=== PATIENT | male | born 1950 | race American Indian/Alaskan Native ===

== ENCOUNTER 2017-12-16 03:01 | Inpatient (IN) | payer MEDICARE ==
[2017-12-16 04:05] LABS: BUN/Creatinine Ratio 13; Blood Urea Nitrogen 13 mg/dL (9-20); Calcium 8.6 mg/dL (8.4-10.2); Hemolysis Index 70
[2017-12-16 04:06] LABS: Basophils # (Auto) 0.1 K/mm3 (0.0-0.1); Basophils % (Auto) 0.9 % (0.0-1.8); Eosinophils # (Auto) 0.2 K/mm3 (0.0-0.4); Eosinophils % (Auto) 1.8 % (0.0-4.3); Hematocrit 40.6 % (35.5-45.6); Hemoglobin 13.4 gm/dl (11.8-15.2); Lymphocytes # (Auto) 1.7 K/mm3 (1.2-5.4); Lymphocytes % (Auto) 20.7 % (13.4-35.0); Mean Corpuscular HGB Conc 33 % (32-34); Mean Corpuscular Hemoglobin 31 pg (28-32); Mean Corpuscular Volume 95 fl (84-94); Monocytes # (Auto) 0.6 K/mm3 (0.0-0.8); Monocytes % (Auto) 7.1 % (0.0-7.3); Red Blood Count 4.27 M/mm3 (3.65-5.03); Red Cell Distribution Width 16.5 % (13.2-15.2)
[2017-12-16 04:09] LABS: Platelet Count 137 K/mm3 (140-440)
--- NOTE | 2017-12-16 04:14 | XRay Report ---
FINAL REPORT EXAM: XR CHEST 1V AP HISTORY: BRAULIO TECHNIQUE: A portable view of the chest was submitted. FINDINGS: The heart is [id number] enlarged. The lungs are diffusely congested. There is airspace disease in both lung bases. Underlying effusions cannot be excluded. There are EKG leads overlying the chest wall. The bones and soft tissues reveal surgical clips in the left side of the neck. IMPRESSION: Cardiomegaly with pulmonary vascular congestion as described. There is airspace disease in both lung bases. Whether this is on the basis of pulmonary edema versus pneumonia is uncertain.
[2017-12-16] MEDS ORDERED: BABY ASPIRIN PO ONE (08:09)
[2017-12-16] MEDS ORDERED: LOPRESSOR PO ONE (08:10)
[2017-12-16] MEDS ORDERED: PLAVIX PO ONE (08:10)
[2017-12-16 08:14] LABS: Chol/HDL Ratio 2.83 %
--- NOTE | 2017-12-16 08:28 | Emergency Department Report ---
ED Shortness of Breath HPI - General Chief Complaint: Dyspnea/Respdistress Stated Complaint: BRAULIO Time Seen by Provider: 12/16/17 06:17 Source: patient, EMS Mode of arrival: Stretcher Limitations: No Limitations - History of Present Illness Initial Comments: pt. says that he was also wheezing .Just before i got to the room he said he started having chest pain,substernal mild to moderate intensity non radiating with aggrav. with movement and no relieving factor Complaint: shortness of breath Onset/Timin (day) -: Gradual Radiation: other (none) Severity: moderate Quality: aching Consistency: intermittent Improves With: nothing Worsens With: movement Known History Of: COPD Associated Symptoms: chest pain - Related Data Home Medications Medication Instructions Recorded Confirmed Last Taken Budesonide/Formoterol Fumarate 1 puff IH BID 12/16/17 12/16/17 Unknown [Symbicort 160-4.5 Mcg Inhaler] Cholecalciferol Vit D3 [Vitamin D3] 400 unit PO QDAY 12/16/17 12/16/17 Unknown Digoxin [Lanoxin] 0.125 mg PO DAILY 12/16/17 12/16/17 Unknown Furosemide [Lasix] 20 mg PO DAILY 12/16/17 12/16/17 Unknown Lisinopril [Zestril TAB] 2.5 mg PO QDAY 12/16/17 12/16/17 Unknown Pentoxifylline 400 mg PO QDAY 12/16/17 12/16/17 Unknown Previous Rx's Medication Instructions Recorded Last Taken Type Carvedilol [Coreg] 3.125 mg PO BID #60 tablet 10/05/14 Unknown Rx Folic Acid [Folvite] 1 mg PO QDAY #30 tablet 10/05/14 Unknown Rx Potassium Chloride 10 meq PO QDAY #30 capsule.er 10/05/14 Unknown Rx Simvastatin 20 mg PO QHS #30 tablet 10/05/14 Unknown Rx amLODIPine [Norvasc] 5 mg PO DAILY #30 tablet 10/05/14 Unknown Rx Metformin HCl [Glucophage] 500 mg PO BID #60 tablet 08/03/16 Unknown Rx Allergies Allergy/AdvReac Type Severity Reaction Status Date / Time No Known Allergies Allergy Unverified 12/04/13 14:21 ED Review of Systems ROS: Stated complaint: BRAULIO Other details as noted in HPI Comment: All other systems reviewed and negative ED Past Medical Hx - Past Medical History Previous Medical History?: Yes Hx Hypertension: Yes Hx CVA: Yes (x 2) Hx Congestive Heart Failure: Yes (EF 30-35% on echo 08/14, 20% on Heart Cath ) Hx COPD: Yes (no home O2) Additional medical history: high cholesterol. gout - Surgical History Past Surgical History?: Yes Additional Surgical History: left ankle surgery - Social History Smoking Status: Never Smoker Substance Use Type: Prescribed - Medications Home Medications: Home Medications Medication Instructions Recorded Confirmed Last Taken Type Carvedilol [Coreg] 3.125 mg PO BID #60 tablet 10/05/14 12/16/17 Unknown Rx Folic Acid [Folvite] 1 mg PO QDAY #30 tablet 10/05/14 12/16/17 Unknown Rx Potassium Chloride 10 meq PO QDAY #30 capsule.er 10/05/14 12/16/17 Unknown Rx Simvastatin 20 mg PO QHS #30 tablet 10/05/14 12/16/17 Unknown Rx amLODIPine [Norvasc] 5 mg PO DAILY #30 tablet 10/05/14 12/16/17 Unknown Rx Metformin HCl [Glucophage] 500 mg PO BID #60 tablet 08/03/16 12/16/17 Unknown Rx Budesonide/Formoterol Fumarate 1 puff IH BID 12/16/17 12/16/17 Unknown History [Symbicort 160-4.5 Mcg Inhaler] Cholecalciferol Vit D3 [Vitamin D3] 400 unit PO QDAY 12/16/17 12/16/17 Unknown History Digoxin [Lanoxin] 0.125 mg PO DAILY 12/16/17 12/16/17 Unknown History Furosemide [Lasix] 20 mg PO DAILY 12/16/17 12/16/17 Unknown History Lisinopril [Zestril TAB] 2.5 mg PO QDAY 12/16/17 12/16/17 Unknown History Pentoxifylline 400 mg PO QDAY 12/16/17 12/16/17 Unknown History ED Physical Exam - General Limitations: No Limitations General appearance: alert, in no apparent distress - Head Head exam: Present: atraumatic, normocephalic - Eye Eye exam: Present: normal appearance, PERRL - ENT ENT exam: Present: mucous membranes moist - Neck Neck exam: Present: normal inspection. Absent: tenderness - Respiratory Respiratory exam: Present: rales (bibasilar), other (on 3 litres nasal cannula) . Absent: respiratory distress - Cardiovascular Cardiovascular Exam: Present: regular rate, normal rhythm. Absent: systolic murmur, diastolic murmur, rubs, gallop - GI/Abdominal GI/Abdominal exam: Present: soft, normal bowel sounds. Absent: tenderness - Rectal Rectal exam: Present: deferred - Extremities Exam Extremities exam: Present: normal inspection, pedal edema (1+ edema) - Back Exam Back exam: Present: normal inspection - Neurological Exam Neurological exam: Present: alert, oriented X3 - Skin Skin exam: Present: warm, dry, intact, normal color. Absent: rash ED Course Vital Signs 12/16/17 12/16/17 12/16/17 03:00 03:02 03:15 Temperature 99.1 F Pulse Rate 106 H 107 H 103 H Respiratory 26 H 25 H 31 H Rate Blood Pressure 156/92 151/92 151/92 Blood Pressure [Right] O2 Sat by Pulse 97 99 95 Oximetry 12/16/17 12/16/17 12/16/17 03:31 04:00 04:15 Temperature Pulse Rate 97 H 85 79 Respiratory 27 H 26 H 22 Rate Blood Pressure 153/133 127/81 127/81 Blood Pressure [Right] O2 Sat by Pulse 96 99 95 Oximetry 12/16/17 12/16/17 12/16/17 04:30 04:45 05:00 Temperature Pulse Rate 100 H 96 H 87 Respiratory 25 H 25 H 19 Rate Blood Pressure 129/89 129/89 141/84 Blood Pressure [Right] O2 Sat by Pulse 96 98 97 Oximetry 12/16/17 12/16/17 12/16/17 05:30 06:00 07:59 Temperature 98.1 F Pulse Rate 97 H 97 H 102 H Respiratory 26 H 25 H 18 Rate Blood Pressure 145/96 147/96 Blood Pressure 139/95 [Right] O2 Sat by Pulse 96 98 95 Oximetry ED Medical Decision Making - Lab Data Result diagrams: 12/16/17 03:40 12/16/17 03:40 - EKG Data -: EKG Interpreted by Me EKG shows normal: sinus rhythm (sinus tachycardia rate of 104), axis (normal), intervals (normal), QRS complexes (normal), ST-T waves (normal) Rate: tachycardia - Radiology Data Radiology results: report reviewed - Medical Decision Making i spoke to Dr Walker and she said to admit patient to Dr Reeves Critical care attestation.: If time is entered above; I have spent that time in minutes in the direct care of this critically ill patient, excluding procedure time. ED Disposition Clinical Impression: NSTEMI (non-ST elevated myocardial infarction), Pulmonary edema Disposition: OP ADMIT IP TO THIS HOSP Is pt being admited?: Yes Does the pt Need Aspirin: Yes Condition: Stable Instructions: Pulmonary Edema (ED) Referrals: SUNDAR KRAMER MD [Primary Care Provider] - 3-5 Days Time of Disposition: 08:34 Print Language: SAUDI ARABIAN
[2017-12-16] MEDS ORDERED: D5W IV SCH (09:00)
[2017-12-16] MEDS ORDERED: HEPARIN/ 0.45% NACL-25,000 UNIT/500 ML 25,000 UNIT/500 ML BAG IV SCH (09:00)
[2017-12-16] MEDS ORDERED: HEPARIN IV SCH (09:00)
[2017-12-16] MEDS ORDERED: HEPARIN 10,000 UNITS/10 ML IV NR (10:00)
--- NOTE | 2017-12-16 10:02 | History and Physical Report ---
History of Present Illness Date of examination: 12/16/17 Date of admission: 12/16/17 08:21 Chief complaint: Shortness of breath History of present illness: 67-year-old -[place] male with past medical history significant for CHF , hypertension, COPD, hyperlipidemia presented to the emergency department complaining of shortness of breath that started early this morning. Shortness of breath started when he was watching TV. Patient admitted that he forget to take his pills yesterday. Patient has history of COPD and is on Symbicort. Patient had midsternal chest pain is morning after he come to the hospital, pain was dull, 3 out of 10 in intensity, with no radiation. He goes away by itself. Patient has on and off cough. REVIEW OF SYSTEMS: GENERAL: no weight change, no fatigue, no fever HEAD: no head ache EYES: no blurry vision, no acute visual loss EARS: no hearing loss, no discharge, no earache NOSE: no stuffiness, no sneezing, no discharge MOUTH, THROAT AND NECK: no bleeding gums, no sore throat, no swollen neck CARDIAC: As stated in the HPI. RESPIRATORY: As stated in HPI. GI: no decreased appetite, no nausea, no vomiting, no dysphagia, no diarrhea, no constipation, no abdominal pain URINARY: no change in frequency, no urgency, no polyuria, no hematuria, no incontinence MUSCULOSKELETAL: no muscle weakness, no pain, no joint stiffness NEUROLOGIC: no loss of sensation/numbness, no tingling, no tremors, no weakness/ paralysis HEMATOLOGIC: no anemia, no easy bruising SKIN: no rashes ENDOCRINE: no heat/cold intolerance, no polyuria, no polydipsia, no thyroid problems. PSYCHIATRIC: no anxiety, no depression, no suicidal ideations Past History Past Medical History: COPD, diabetes, hypertension, hyperlipidemia Past Surgical History: No surgical history Social history: smoking (1 pack per day), alcohol abuse (occasionally 2 shots), full code. denies: prescription drug abuse, IV drug use Family history: cancer Medications and Allergies Allergies Allergy/AdvReac Type Severity Reaction Status Date / Time No Known Allergies Allergy Unverified 12/04/13 14:21 Home Medications Medication Instructions Recorded Confirmed Last Taken Type Carvedilol [Coreg] 3.125 mg PO BID #60 tablet 10/05/14 12/16/17 Unknown Rx Folic Acid [Folvite] 1 mg PO QDAY #30 tablet 10/05/14 12/16/17 Unknown Rx Potassium Chloride 10 meq PO QDAY #30 capsule.er 10/05/14 12/16/17 Unknown Rx Simvastatin 20 mg PO QHS #30 tablet 10/05/14 12/16/17 Unknown Rx amLODIPine [Norvasc] 5 mg PO DAILY #30 tablet 10/05/14 12/16/17 Unknown Rx Metformin HCl [Glucophage] 500 mg PO BID #60 tablet 08/03/16 12/16/17 Unknown Rx Budesonide/Formoterol Fumarate 1 puff IH BID 12/16/17 12/16/17 Unknown History [Symbicort 160-4.5 Mcg Inhaler] Cholecalciferol Vit D3 [Vitamin D3] 400 unit PO QDAY 12/16/17 12/16/17 Unknown History Digoxin [Lanoxin] 0.125 mg PO DAILY 12/16/17 12/16/17 Unknown History Furosemide [Lasix] 20 mg PO DAILY 12/16/17 12/16/17 Unknown History Lisinopril [Zestril TAB] 2.5 mg PO QDAY 12/16/17 12/16/17 Unknown History Pentoxifylline 400 mg PO QDAY 12/16/17 12/16/17 Unknown History Active Meds: Active Medications Heparin Sodium (Porcine) (Heparin 10,000 Units/10 Ml) 4,000 unit IV ONCE NR Stop: 12/16/17 12:00 Heparin Sodium/Sodium Chloride (Heparin/ 0.45% Nacl-25,000 Unit/500 Ml) 25,000 unit in 500 mls @ 20 mls/hr IV TITRATE HAM; Protocol Exam - Physical Exam Narrative exam: Not in cardiopulmonary distress. The patient appeared well nourished and normally developed. Vital signs as documented. Head exam is unremarkable. No scleral icterus . Neck is without jugular venous distension, thyromegaly, or carotid bruits. Lungs bibasilar rales. Cardiac exam reveals regular rate and Rhythm. First and second heart sounds normal. No murmurs, rubs or gallops. Abdominal exam reveals normal bowel sounds, no masses, no organomegaly and no aortic enlargement. Extremities are nonedematous and both femoral and pedal pulses are normal. [employer]: Alert and oriented 3. No focal weakness. - Constitutional Vitals: Temp Pulse Resp BP Pulse Ox 98.1 F 108 H 18 149/99 95 12/16/17 07:59 12/16/17 08:48 12/16/17 07:59 12/16/17 08:48 12/16/17 07:59 Results - Labs CBC & Chem 7: 12/16/17 03:40 12/16/17 03:40 Labs: Laboratory Last Values WBC 8.4 K/mm3 (4.5-11.0) 12/16/17 03:40 RBC 4.27 M/mm3 (3.65-5.03) 12/16/17 03:40 Hgb 13.4 gm/dl (11.8-15.2) 12/16/17 03:40 Hct 40.6 % (35.5-45.6) 12/16/17 03:40 MCV 95 fl (84-94) H 12/16/17 03:40 MCH 31 pg (28-32) 12/16/17 03:40 MCHC 33 % (32-34) 12/16/17 03:40 RDW 16.5 % (13.2-15.2) H 12/16/17 03:40 Plt Count 137 K/mm3 (140-440) L 12/16/17 03:40 Lymph % (Auto) 20.7 % (13.4-35.0) 12/16/17 03:40 [place] % (Auto) 7.1 % (0.0-7.3) 12/16/17 03:40 Eos % (Auto) 1.8 % (0.0-4.3) 12/16/17 03:40 Baso % (Auto) 0.9 % (0.0-1.8) 12/16/17 03:40 Lymph # 1.7 K/mm3 (1.2-5.4) 12/16/17 03:40 [place] # 0.6 K/mm3 (0.0-0.8) 12/16/17 03:40 Eos # 0.2 K/mm3 (0.0-0.4) 12/16/17 03:40 Baso # 0.1 K/mm3 (0.0-0.1) 12/16/17 03:40 Seg Neutrophils % 69.5 % (40.0-70.0) 12/16/17 03:40 Seg Neutrophils # 5.8 K/mm3 (1.8-7.7) 12/16/17 03:40 Sodium 141 mmol/L (137-145) 12/16/17 03:40 Potassium 3.9 mmol/L (3.6-5.0) 12/16/17 03:40 Chloride 104.4 mmol/L (98-107) 12/16/17 03:40 Carbon Dioxide 21 mmol/L (22-30) L 12/16/17 03:40 Anion Gap 20 mmol/L 12/16/17 03:40 BUN 13 mg/dL (9-20) 12/16/17 03:40 Creatinine 1.0 mg/dL (0.8-1.5) 12/16/17 03:40 Estimated GFR > 60 ml/min 12/16/17 03:40 BUN/Creatinine Ratio 13 % 12/16/17 03:40 Glucose 137 mg/dL (75-100) H 12/16/17 03:40 Calcium 8.6 mg/dL (8.4-10.2) 12/16/17 03:40 Troponin T 0.064 ng/mL (0.00-0.029) H 12/16/17 07:08 NT-Pro-B Natriuret Pep 1121 pg/mL (0-900) H 12/16/17 07:08 Triglycerides 88 mg/dL (2-149) 12/16/17 07:08 Cholesterol 170 mg/dL (50-199) 12/16/17 07:08 LDL Cholesterol Direct 100 mg/dL (50-130) 12/16/17 07:08 HDL Cholesterol 60 mg/dL (40-59) H 12/16/17 07:08 Cholesterol/HDL Ratio 2.83 % 12/16/17 07:08 - Imaging and Cardiology Chest x-ray: report reviewed (cardiomegaly and pulmonary venous congestion) Assessment and Plan Assessment and plan: Acute on chronic combined CHF exacerbation Elevated troponin likely due to CHF exacerbation, he has previous elevation of troponin COPD Hypertension Hyperlipidemia Medication noncompliance Active tobacco abuse - Start him on IV Lasix, continue appropriate home safety of medications, consult cardiology - Duonebs, Symbicort, support - Patient was counseled about cessation tobacco abuse, and medication non compliance DVT prophylaxis - heparin Disposition - admitted telemetry floor. Advance Directives: Yes VTE prophylaxis?: Chemical Plan of care discussed with patient/family: Yes
[2017-12-16] MEDS ORDERED: NON-FORMULARY (Budesonide/Formoterol Fumarate [Symbicort 160-4.5 Mcg Inhaler] 1 PUFF) IH SCH (10:15)
[2017-12-16] MEDS ORDERED: D50W (25GM) Syringe IV PRN (10:19)
[2017-12-16] MEDS: LASIX IV SCH ×2 (10:23→17:37)
[2017-12-16] MEDS: NORVASC PO SCH (12:39)
[2017-12-16] MEDS: HumaLOG SUB-Q SCH ×3 (12:40→23:34)
[2017-12-16] MEDS: ZESTRIL PO SCH (12:40)
[2017-12-16] MEDS: LANOXIN PO SCH (13:19)
[2017-12-16] MEDS ORDERED: BROVANA NEBU IH ONE (13:24)
[2017-12-16] MEDS ORDERED: PULMICORT IH ONE (13:24)
[2017-12-16] MEDS: DUONEB *Not for PRN Use IH SCH ×4 (13:31→23:30)
[2017-12-16] MEDS: PULMICORT IH SCH ×2 (13:35→20:39)
[2017-12-16] MEDS: BROVANA NEBU IH SCH ×2 (13:35→20:39)
--- NOTE | 2017-12-16 15:50 | Consultation ---
History of Present Illness Consult date: 12/16/17 Consult reason: shortness of breath History of present illness: 67 year old male presenting with acute onset shortness of breath that started at 2 am this morning. Patient presented to the ER and was treated with Nebs along with IV diuretics and had relief. Patient is a chronic smoker, known history of non-ischemic cardiomyopathy with LVEF 20% back in 2013 that appears to have recovered to 55% by echo 03/2017. A cath done in 2013 showed small vessel disease involving OM1 otherwise non-obstructive anatomy. Patient reports compliance but admits occasionally forgetting to take his medications Past History Past Medical History: COPD, diabetes, hypertension, hyperlipidemia Past Surgical History: No surgical history Social history: smoking (1 pack per day), alcohol abuse (occasionally 2 shots), full code. denies: prescription drug abuse, IV drug use Family history: cancer Medications and Allergies Allergies Allergy/AdvReac Type Severity Reaction Status Date / Time No Known Allergies Allergy Unverified 12/04/13 14:21 Home Medications Medication Instructions Recorded Confirmed Last Taken Type Carvedilol [Coreg] 3.125 mg PO BID #60 tablet 10/05/14 12/16/17 Unknown Rx Folic Acid [Folvite] 1 mg PO QDAY #30 tablet 10/05/14 12/16/17 Unknown Rx Potassium Chloride 10 meq PO QDAY #30 capsule.er 10/05/14 12/16/17 Unknown Rx Simvastatin 20 mg PO QHS #30 tablet 10/05/14 12/16/17 Unknown Rx amLODIPine [Norvasc] 5 mg PO DAILY #30 tablet 10/05/14 12/16/17 Unknown Rx Metformin HCl [Glucophage] 500 mg PO BID #60 tablet 08/03/16 12/16/17 Unknown Rx Budesonide/Formoterol Fumarate 1 puff IH BID 12/16/17 12/16/17 Unknown History [Symbicort 160-4.5 Mcg Inhaler] Cholecalciferol Vit D3 [Vitamin D3] 400 unit PO QDAY 12/16/17 12/16/17 Unknown History Digoxin [Lanoxin] 0.125 mg PO DAILY 12/16/17 12/16/17 Unknown History Furosemide [Lasix] 20 mg PO DAILY 12/16/17 12/16/17 Unknown History Lisinopril [Zestril TAB] 2.5 mg PO QDAY 12/16/17 12/16/17 Unknown History Pentoxifylline 400 mg PO QDAY 12/16/17 12/16/17 Unknown History Active Meds: Active Medications Albuterol/Ipratropium (Duoneb *Not For Prn Use*) 1 ampul IH Q4HRT [facility] Last Admin: 12/16/17 13:31 Dose: 1 ampul Amlodipine Besylate (Norvasc) 5 mg PO DAILY [facility] Last Admin: 12/16/17 12:39 Dose: 5 mg Arformoterol Tartrate (Brovana Nebu) 15 mcg IH Q12HRT [facility] Last Admin: 12/16/17 13:35 Dose: 15 mcg Budesonide (Pulmicort) 0.5 mg IH Q12HRT [facility] Last Admin: 12/16/17 13:35 Dose: 0.5 mg Carvedilol (Coreg) 3.125 mg PO BID [facility] Cholecalciferol (Vitamin D3) 400 unit PO QDAY [facility] Dextrose (D50w (25gm) Syringe) 50 ml IV PRN PRN PRN Reason: Hypoglycemia Digoxin (Lanoxin) 0.125 mg PO DAILY [facility] Last Admin: 12/16/17 13:19 Dose: 0.125 mg Folic Acid (Folvite) 1 mg PO QDAY [facility] Furosemide (Lasix) 40 mg IV 0600,1800 [facility] Last Admin: 12/16/17 10:23 Dose: 40 mg Heparin Sodium (Porcine) (Heparin) 5,000 unit SUB-Q Q12HR [facility] Insulin Human Lispro (Humalog) 0 unit SUB-Q [facility]; Protocol Last Admin: 12/16/17 12:40 Dose: 3 unit Lisinopril (Zestril) 2.5 mg PO QDAY [facility] Last Admin: 12/16/17 12:40 Dose: 2.5 mg Nicotine (Habitrol) 21 mg TD QDAY [facility] Pravastatin Sodium (Pravachol) 40 mg PO QHS [facility] Review of Systems All systems: negative Physical Examination Vital Signs Pulse Resp BP Pulse Ox 106 H 26 H 156/92 97 12/16/17 03:00 12/16/17 03:00 12/16/17 03:00 12/16/17 03:00 General appearance: no acute distress HEENT: Positive: PERRL Neck: Positive: neck supple Cardiac: Positive: Reg Rate and Rhythm Lungs: Positive: Decreased Breath Sounds Neuro: Positive: Grossly Intact Abdomen: Positive: Soft Extremities: Absent: edema Results 12/16/17 03:40 12/16/17 03:40 Lipids 12/16/17 Range/Units 07:08 Triglycerides 88 (2-149) mg/dL Cholesterol 170 (50-199) mg/dL HDL Cholesterol 60 H (40-59) mg/dL Cholesterol/HDL Ratio 2.83 % CBC 12/16/17 Range/Units 03:40 WBC 8.4 (4.5-11.0) K/mm3 RBC 4.27 (3.65-5.03) M/mm3 Hgb 13.4 (11.8-15.2) gm/dl Hct 40.6 (35.5-45.6) % Plt Count 137 L (140-440) K/mm3 Lymph # 1.7 (1.2-5.4) K/mm3 [place] # 0.6 (0.0-0.8) K/mm3 Eos # 0.2 (0.0-0.4) K/mm3 Baso # 0.1 (0.0-0.1) K/mm3 Comprehensive Metabolic Panel 12/16/17 Range/Units 03:40 Sodium 141 (137-145) mmol/L Potassium 3.9 (3.6-5.0) mmol/L Chloride 104.4 (98-107) mmol/L Carbon Dioxide 21 L (22-30) mmol/L BUN 13 (9-20) mg/dL Creatinine 1.0 (0.8-1.5) mg/dL Glucose 137 H (75-100) mg/dL Calcium 8.6 (8.4-10.2) mg/dL Assessment and Plan Shortness of breath - multifactorial Congestive heart failure CXR showing cardiomegaly with pulmonary venous congestion LVEF 50-55% 03/2017 COPD exacerbation CAD Small OM1 disease in 2013 Non-specific troponin Non-specific ST-T waves abnormalities on ECG Recommendations: Agree with management Echocardiogram Continue to trend troponin
[2017-12-16] MEDS: HABITROL TD SCH (17:41)
[2017-12-16] MEDS: HEPARIN SUB-Q SCH (22:41)
[2017-12-16] MEDS: PRAVACHOL PO SCH (22:41)
[2017-12-16] MEDS: COREG PO SCH (22:41)
[2017-12-17] MEDS: DUONEB *Not for PRN Use IH SCH ×5 (03:59→20:20)
[2017-12-17 06:01] LABS: BUN/Creatinine Ratio 21; Blood Urea Nitrogen 19 mg/dL (9-20); Calcium 8.6 mg/dL (8.4-10.2); Hemolysis Index 6
[2017-12-17] MEDS: LASIX IV SCH ×2 (06:03→17:28)
[2017-12-17] MEDS: BROVANA NEBU IH SCH ×2 (08:11→20:20)
[2017-12-17] MEDS: PULMICORT IH SCH ×2 (08:11→20:19)
[2017-12-17] MEDS: LANOXIN PO SCH (10:06)
[2017-12-17] MEDS: NORVASC PO SCH (10:06)
[2017-12-17] MEDS: ZESTRIL PO SCH (10:07)
[2017-12-17] MEDS: COREG PO SCH ×2 (10:07→23:11)
[2017-12-17] MEDS: HEPARIN SUB-Q SCH ×2 (10:07→23:12)
[2017-12-17] MEDS: FOLVITE PO SCH (10:07)
[2017-12-17] MEDS: HABITROL TD SCH (10:07)
[2017-12-17] MEDS: HumaLOG SUB-Q SCH ×4 (10:08→23:14)
--- NOTE | 2017-12-17 10:46 | Progress Note ---
Assessment and Plan Shortness of breath - multifactorial Congestive heart failure -diastolic CXR showing cardiomegaly with pulmonary venous congestion LVEF 50-55% 03/2017 COPD exacerbation Hx of CAD Small OM1 disease, otherwise non obstructive diffuse CAD on [facility] 08/2014 Non-specific troponin Non-specific ST-T waves abnormalities on ECG Echocardiogram done today, results are pending. Subjective Date of service: 12/17/17 Interval history: Patient reports his breathing has improved. He denies chest pain. Objective Vital Signs Temp Pulse Pulse Resp Resp BP BP 12/17/17 10:07 135/88 12/17/17 10:06 135/88 12/17/17 08:25 69 135/88 12/17/17 05:43 97.6 F 71 22 123/78 12/17/17 04:00 83 12/17/17 01:53 98.2 F 76 22 130/68 12/16/17 23:37 90 20 12/16/17 23:30 88 20 12/16/17 22:41 97 H 127/71 12/16/17 20:50 93 H 20 12/16/17 20:41 91 H 20 12/16/17 20:17 91 H 12/16/17 20:09 98.3 F 80 22 127/71 18 16:56 97.8 F 82 20 153/95 18 16:52 87 20 18 16:42 88 20 18 15:44 97.8 F 81 20 153/95 18 14:40 165/99 12/16/17 14:30 165/99 12/16/17 14:01 159/81 12/16/17 13:31 151/88 18 13:19 100 H 158/95 18 13:00 158/95 18 12:40 100 H 151/88 12/16/17 12:39 100 H 151/88 12/16/17 12:31 151/88 12/16/17 12:00 149/89 12/16/17 11:31 136/74 12/16/17 11:01 136/74 Pulse Ox 12/17/17 10:07 12/17/17 10:06 12/17/17 08:25 99 12/17/17 05:43 98 12/17/17 04:00 03/19/18 01:53 94 12/16/17 23:37 12/16/17 23:30 12/16/17 22:41 12/16/17 20:50 12/16/17 20:41 12/16/17 20:17 12/16/17 20:09 96 12/16/17 16:56 95 12/16/17 16:52 12/16/17 16:42 12/16/17 15:44 98 12/16/17 14:40 96 12/16/17 14:30 97 12/16/17 14:01 96 12/16/17 13:31 97 12/16/17 13:19 12/16/17 13:00 95 12/16/17 12:40 12/16/17 12:39 12/16/17 12:31 92 12/16/17 12:00 99 12/16/17 11:31 98 12/16/17 11:01 97 - Physical Examination General: No Apparent Distress HEENT: Positive: PERRL Cardiac: Positive: Reg Rate and Rhythm Lungs: Positive: Decreased Breath Sounds Neuro: Positive: Grossly Intact - Labs and Meds Comprehensive Metabolic Panel 12/17/17 Range/Units 05:03 Sodium 140 (137-145) mmol/L Potassium 3.7 (3.6-5.0) mmol/L Chloride 103.9 (98-107) mmol/L Carbon Dioxide 21 L (22-30) mmol/L BUN 19 (9-20) mg/dL Creatinine 0.9 (0.8-1.5) mg/dL Glucose 168 H (75-100) mg/dL Calcium 8.6 (8.4-10.2) mg/dL
--- NOTE | 2017-12-17 13:33 | Progress Note ---
Assessment and Plan Assessment and plan: Acute on chronic combined CHF exacerbation Elevated troponin likely due to CHF exacerbation, he has previous elevation of troponin COPD Hypertension Hyperlipidemia Medication noncompliance Active tobacco abuse - on IV Lasix, continue appropriate home medications - Cardiology was consulted and recommend to IV diuresis - Duonebs, Symbicort, support - Patient was counseled about cessation tobacco abuse, and medication non compliance DVT prophylaxis - heparin Disposition - Possible DC tomorrow History Interval history: Patient was seen and evaluated this morning, SOB is getting better. Hospitalist Physical - Physical exam Narrative exam: Not in cardiopulmonary distress. The patient appeared well nourished and normally developed. Vital signs as documented. Head exam is unremarkable. No scleral icterus . Neck is without jugular venous distension, thyromegaly, or carotid bruits. Lungs bibasilar rales. Cardiac exam reveals regular rate and Rhythm. First and second heart sounds normal. No murmurs, rubs or gallops. Abdominal exam reveals normal bowel sounds, no masses, no organomegaly and no aortic enlargement. Extremities are nonedematous and both femoral and pedal pulses are normal. 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 No focal weakness. - Constitutional Vitals: Temp Pulse Resp BP Pulse Ox 98.0 F 83 20 116/63 95 12/17/17 11:35 12/17/17 12:00 12/17/17 11:35 12/17/17 11:35 12/17/17 11:36 General appearance: Present: no acute distress Results - Labs CBC & Chem 7: 12/16/17 03:40 12/17/17 05:03 Labs: Laboratory Last Values WBC 8.4 K/mm3 (4.5-11.0) 12/16/17 03:40 RBC 4.27 M/mm3 (3.65-5.03) 12/16/17 03:40 Hgb 13.4 gm/dl (11.8-15.2) 12/16/17 03:40 Hct 40.6 % (35.5-45.6) 12/16/17 03:40 MCV 95 fl (84-94) H 12/16/17 03:40 MCH 31 pg (28-32) 12/16/17 03:40 MCHC 33 % (32-34) 12/16/17 03:40 RDW 16.5 % (13.2-15.2) H 12/16/17 03:40 Plt Count 137 K/mm3 (140-440) L 12/16/17 03:40 Lymph % (Auto) 20.7 % (13.4-35.0) 12/16/17 03:40 [place] % (Auto) 7.1 % (0.0-7.3) 12/16/17 03:40 Eos % (Auto) 1.8 % (0.0-4.3) 12/16/17 03:40 Baso % (Auto) 0.9 % (0.0-1.8) 12/16/17 03:40 Lymph # 1.7 K/mm3 (1.2-5.4) 12/16/17 03:40 [place] # 0.6 K/mm3 (0.0-0.8) 12/16/17 03:40 Eos # 0.2 K/mm3 (0.0-0.4) 12/16/17 03:40 Baso # 0.1 K/mm3 (0.0-0.1) 12/16/17 03:40 Seg Neutrophils % 69.5 % (40.0-70.0) 12/16/17 03:40 Seg Neutrophils # 5.8 K/mm3 (1.8-7.7) 12/16/17 03:40 Sodium 140 mmol/L (137-145) 12/17/17 05:03 Potassium 3.7 mmol/L (3.6-5.0) 12/17/17 05:03 Chloride 103.9 mmol/L (98-107) 12/17/17 05:03 Carbon Dioxide 21 mmol/L (22-30) L 12/17/17 05:03 Anion Gap 19 mmol/L 12/17/17 05:03 BUN 19 mg/dL (9-20) 12/17/17 05:03 Creatinine 0.9 mg/dL (0.8-1.5) 12/17/17 05:03 Estimated GFR > 60 ml/min 12/17/17 05:03 BUN/Creatinine Ratio 21 % 12/17/17 05:03 Glucose 168 mg/dL (75-100) H 12/17/17 05:03 POC Glucose 325 (70-105) H 12/17/17 11:44 Calcium 8.6 mg/dL (8.4-10.2) 12/17/17 05:03 Troponin T 0.074 ng/mL (0.00-0.029) H 12/17/17 10:45 NT-Pro-B Natriuret Pep 1121 pg/mL (0-900) H 12/16/17 07:08 Triglycerides 88 mg/dL (2-149) 12/16/17 07:08 Cholesterol 170 mg/dL (50-199) 12/16/17 07:08 LDL Cholesterol Direct 100 mg/dL (50-130) 12/16/17 07:08 HDL Cholesterol 60 mg/dL (40-59) H 12/16/17 07:08 Cholesterol/HDL Ratio 2.83 % 12/16/17 07:08
[2017-12-17] MEDS: VITAMIN D3 PO SCH (14:19)
[2017-12-17] MEDS: PRAVACHOL PO SCH (23:11)
[2017-12-18] MEDS: DUONEB *Not for PRN Use IH SCH ×5 (02:31→17:18)
[2017-12-18] MEDS: LASIX IV SCH (05:48)
[2017-12-18 06:16] LABS: BUN/Creatinine Ratio 21; Blood Urea Nitrogen 21 mg/dL (9-20); Calcium 8.8 mg/dL (8.4-10.2); Hemolysis Index 4
[2017-12-18 06:23] VITALS: BP 122/83
[2017-12-18] MEDS: BROVANA NEBU IH SCH (08:58)
[2017-12-18] MEDS: PULMICORT IH SCH (08:58)
[2017-12-18] MEDS: LANOXIN PO SCH (10:00)
[2017-12-18] MEDS: FOLVITE PO SCH (10:00)
[2017-12-18] MEDS: NORVASC PO SCH (10:00)
[2017-12-18] MEDS: COREG PO SCH (10:00)
[2017-12-18] MEDS: ZESTRIL PO SCH (10:00)
[2017-12-18] MEDS: HABITROL TD SCH (10:00)
[2017-12-18] MEDS: HEPARIN SUB-Q SCH (10:01)
--- NOTE | 2017-12-18 10:38 | Progress Note ---
Assessment and Plan Shortness of breath - multifactorial Systolic heart failure -LVEF 25-30% on echocardiogram COPD exacerbation Hx of CAD Small OM1 disease, otherwise non obstructive diffuse CAD on [facility] 08/2014 Hx of NICMP Non-specific troponin Non-specific ST-T waves abnormalities on ECG Subjective Date of service: 12/18/17 Interval history: Patient reports his breathing has improved. He denies chest pain. Objective Vital Signs Temp Pulse Pulse Resp Resp BP Pulse Ox 12/18/17 09:14 20 12/18/17 09:02 93 12/18/17 09:00 102 H 18 12/18/17 04:50 98.2 F 94 H 20 122/83 96 12/17/17 23:57 98.3 F 51 L 20 119/72 94 12/17/17 23:11 89 138/91 12/17/17 22:32 20 95 12/17/17 20:37 97.9 F 89 18 138/91 95 12/17/17 20:30 85 16 12/17/17 20:20 83 15 12/17/17 19:58 89 12/17/17 17:25 98.6 F 18 117/83 12/17/17 16:38 84 18 12/17/17 16:24 88 18 12/17/17 12:00 83 12/17/17 11:36 79 95 12/17/17 11:35 98.0 F 80 20 116/63 93 - Physical Examination General: No Apparent Distress HEENT: Positive: PERRL Cardiac: Positive: Reg Rate and Rhythm Lungs: Positive: Decreased Breath Sounds Neuro: Positive: Grossly Intact Extremities: Absent: edema - Labs and Meds Comprehensive Metabolic Panel 12/18/17 Range/Units 04:38 Sodium 145 (137-145) mmol/L Potassium 3.3 L (3.6-5.0) mmol/L Chloride 105.1 (98-107) mmol/L Carbon Dioxide 23 (22-30) mmol/L BUN 21 H (9-20) mg/dL Creatinine 1.0 (0.8-1.5) mg/dL Glucose 101 H (75-100) mg/dL Calcium 8.8 (8.4-10.2) mg/dL
--- NOTE | 2017-12-18 13:27 | Discharge Summary ---
Providers - Providers Date of Admission: 12/16/17 08:21 Attending physician: RASHAD NICHOLE MD 12/16/17 09:30 Consult to Physician [CONS] Routine Comment: Consulting Provider: AMRIT MCLAUGHLIN Physician Instructions: Reason For Exam: chest pain, NSTEMI Primary care physician: SUNDAR KRAMER Hospitalization Condition: Stable Hospital course: The patient has a history of a dilated nonischemic cardiomyopathy, diagnosis made as early as 3 years ago in 2013. On the current presentation, he is found with acute pulmonary edema with bilateral edema. Symptoms have improved with aggressive diuretic treatment. Recommendations: Salt restricted diet. On discharge, and will need oral diuretics, afterload reducing agents, beta blockers and oral antiplatelet therapy. As outpatient, he will follow up with his primary senior web applications developer who will determine his candidacy for future ICD therapy. Assessment and Plan Shortness of breath - multifactorial Systolic heart failure -LVEF 25-30% on echocardiogram COPD exacerbation Hx of CAD Small OM1 disease, otherwise non obstructive diffuse CAD on [facility] 08/2014 Hx of NICMP Non-specific troponin Non-specific ST-T waves abnormalities on ECG Disposition: DC-01 TO HOME OR SELFCARE Time spent for discharge: 35 mins Exam - Constitutional Vitals: Temp Pulse Resp BP Pulse Ox 98.2 F 92 H 18 122/83 93 12/18/17 04:50 12/18/17 12:16 12/18/17 12:16 12/18/17 04:50 12/18/17 09:02 Plan Activity: advance as tolerated, fall precautions Diet: low salt Special Instructions: record daily weights, record daily BP diary Additional Instructions: must follow with primary senior web applications developer for eval for ICD. Repeat Renal function test in one week Follow up with: SUNDAR KRAMER MD [Primary Care Provider] - 3-5 Days Prescriptions: Furosemide [Lasix TAB] 40 mg PO BID #60 tablet
[2017-12-18] MEDS: VITAMIN D3 PO SCH (16:02)
[2017-12-18] MEDS: HumaLOG SUB-Q SCH (16:02)
== END 2017-12-18 17:18 | disposition home or self-care (01) | DRG 280 ==
LOC: ED 03:01 → 4A 08:21
PROVIDERS: ADMIT Internal Medicine; ATTEND Internal Medicine
DX: I21.4 Non-ST elevation (NSTEMI) myocardial infarction (principal); I50.43 Acute on chronic combined systolic (congestive) and diastolic (congestive) heart failure; J44.1 Chronic obstructive pulmonary disease with (acute) exacerbation; J81.1 Chronic pulmonary edema; I42.0 Dilated cardiomyopathy; I11.0 Hypertensive heart disease with heart failure; J44.9 Chronic obstructive pulmonary disease, unspecified; E78.5 Hyperlipidemia, unspecified; F17.200 Nicotine dependence, unspecified, uncomplicated; Y90.9 Presence of alcohol in blood, level not specified; F10.10 Alcohol abuse, uncomplicated; I25.10 Atherosclerotic heart disease of native coronary artery without angina pectoris; I25.2 Old myocardial infarction; Z86.73 Personal history of transient ischemic attack (TIA), and cerebral infarction without residual deficits; Z79.899 Other long term (current) drug therapy; Z80.9 Family history of malignant neoplasm, unspecified; Z91.14 Patient's other noncompliance with medication regimen
CPT/HCPCS: 36415; 71045; 80048; 80061; 82962; 83880; 84484; 85025; 93005; 93010; 93306; 94640; 99406; A9270-GY; J1644; J1815; J1940

== ENCOUNTER 2018-10-04 05:31 | Inpatient (IN) | payer MEDICARE ==
[~2018-10-04 05:31] MED LIST: ADRENALIN ONE; ATROPINE 0.1% (CARDIAC) ONE; INTROPIN DRIP 800 MG/D5W 250 ML IV ONE; SODIUM BICARBONATE IV ONE
[2018-10-04] MEDS ORDERED: ADRENALIN 8 MG in NACL 0.9% 250ML 242 ML IV ONE ×2 (05:44→06:33)
[2018-10-04] MEDS ORDERED: VASELINE LIP THERAPY TP PRN (05:46)
[2018-10-04] MEDS ORDERED: ARTIFICIAL TEARS OPHTH OINT OU PRN (05:46)
[2018-10-04] MEDS ORDERED: INTROPIN DRIP 800 MG/D5W 250 ML 800 MG/250 ML BAG IV ONE (06:02)
--- NOTE | 2018-10-04 06:08 | Emergency Department Report ---
ED CPR HPI - General Stated Complaint: CARDIAC ARREST Time Seen by Provider: 10/04/18 06:00 Source: patient Mode of arrival: Stretcher Limitations: Other - History of Present Illness Initial Comments: 68-year-old male with history of COPD presents to ED in cardiac arrest. EMS re ports they received a call for difficulty breathing. She reportedly was talking prior to EMS arrival and then collapsed. Bystander CPR was performed. On EMS arrival patient was in PEA. She was intubated and ACLS was initiated by EMS. Patient was given epinephrine 4, sodium bicarbonate x 1, patient then transported to ED. ACLS 25 minutes with EMS. Upon ED arrival patient did have a palpable pulse. MD Complaint: collapsed during rest Place: home Bystander CPR Performed: Yes Initial Findings in the Field: unresponsive, no respirations, no pulse, PEA ROSC in the Field: No Associated Injuries: No Associated Symptoms: shortness of breath Treatments Prior to Arrival: intubation, chest compressions, epinephrine mgs # (4), sodium bicarbonate (1), spinal immobilization - Related Data Home Medications Medication Instructions Recorded Confirmed Last Taken RX: Digoxin [Lanoxin] 0.125 mg PO DAILY 12/16/17 10/04/18 Unknown RX: Lisinopril [Zestril TAB] 2.5 mg PO BID 12/16/17 10/04/18 Unknown RX: Pentoxifylline 400 mg PO QDAY 12/16/17 10/04/18 Unknown Furosemide [Lasix TAB] 20 mg PO QDAY 10/04/18 10/04/18 Unknown RX: Metformin HCl [Glucophage] 500 mg PO QDAY 10/04/18 10/04/18 Unknown Previous Rx's Medication Instructions Recorded Last Taken Type RX: Carvedilol [Coreg] 3.125 mg PO BID #60 tablet 10/05/14 Unknown Rx RX: Folic Acid [Folvite] 1 mg PO QDAY #30 tablet 10/05/14 Unknown Rx RX: Potassium Chloride 10 meq PO QDAY #30 capsule.er 10/05/14 Unknown Rx RX: Simvastatin 20 mg PO QHS #30 tablet 10/05/14 Unknown Rx Allergies Allergy/AdvReac Type Severity Reaction Status Date / Time No Known Allergies Allergy Unverified 12/04/13 14:21 ED Review of Systems ROS: Stated complaint: CARDIAC ARREST Other details as noted in HPI Comment: Unobtainable due to pts medical conditions (cardiac arrest) Respiratory: shortness of breath ED Past Medical Hx - Past Medical History Previous Medical History?: Yes Hx Hypertension: Yes Hx CVA: Yes (x 2) Hx Congestive Heart Failure: Yes (EF 30-35% on echo 08/14, 20% on Heart Cath 09/13) Hx Diabetes: Yes Hx COPD: Yes (no home O2) Additional medical history: high cholesterol. gout - Surgical History Past Surgical History?: Yes Additional Surgical History: left ankle surgery - Social History Smoking Status: Unknown if ever smoked Substance Use Type: None - Medications Home Medications: Home Medications Medication Instructions Recorded Confirmed Last Taken Type RX: Carvedilol [Coreg] 3.125 mg PO BID #60 tablet 10/05/14 10/04/18 Unknown Rx RX: Folic Acid [Folvite] 1 mg PO QDAY #30 tablet 10/05/14 10/04/18 Unknown Rx RX: Potassium Chloride 10 meq PO QDAY #30 capsule.er 10/05/14 10/04/18 Unknown Rx RX: Simvastatin 20 mg PO QHS #30 tablet 10/05/14 10/04/18 Unknown Rx RX: Digoxin [Lanoxin] 0.125 mg PO DAILY 12/16/17 10/04/18 Unknown History RX: Lisinopril [Zestril TAB] 2.5 mg PO BID 12/16/17 10/04/18 Unknown History RX: Pentoxifylline 400 mg PO QDAY 12/16/17 10/04/18 Unknown History Furosemide [Lasix TAB] 20 mg PO QDAY 10/04/18 10/04/18 Unknown History RX: Metformin HCl [Glucophage] 500 mg PO QDAY 10/04/18 10/04/18 Unknown History ED Physical Exam - General Limitations: Other General appearance: in distress - Head Head exam: Present: atraumatic, normocephalic - Eye Eye exam: Present: normal appearance - ENT ENT exam: Present: other (ET tube in place) - Respiratory Respiratory exam: Present: decreased breath sounds - Cardiovascular Cardiovascular Exam: Present: tachycardia - GI/Abdominal GI/Abdominal exam: Present: soft. Absent: distended - Extremities Exam Extremities exam: Present: other (IO in left lower leg). Absent: pedal edema - Neurological Exam Neurological exam: Present: other (GCS=3) - Skin Skin exam: Present: warm, dry, intact, normal color ED Course Vital Signs 10/04/18 10/04/18 10/04/18 05:32 05:36 05:40 Pulse Rate 174 H 137 H 50 L Respiratory 19 12 7 L Rate Blood Pressure 138/83 O2 Sat by Pulse 85 Oximetry 10/04/18 10/04/18 10/04/18 05:46 05:50 05:51 Pulse Rate 139 H 133 H 76 Respiratory 19 24 Rate Blood Pressure 187/111 O2 Sat by Pulse 100 98 Oximetry 10/04/18 10/04/18 10/04/18 05:56 06:06 06:10 Pulse Rate 64 133 H 133 H Respiratory 26 H 26 H 21 Rate Blood Pressure 89/65 200/141 178/105 O2 Sat by Pulse 87 Oximetry 10/04/18 10/04/18 10/04/18 06:16 06:20 06:26 Pulse Rate 126 H 123 H 120 H Respiratory 22 26 H 23 Rate Blood Pressure 130/75 107/65 113/62 O2 Sat by Pulse 91 100 100 Oximetry 10/04/18 10/04/18 10/04/18 06:30 06:35 06:39 Pulse Rate 119 H 118 H 118 H Respiratory 26 H 26 H Rate Blood Pressure 127/78 124/73 O2 Sat by Pulse 100 100 100 Oximetry 10/04/18 10/04/18 10/04/18 06:40 06:45 06:50 Pulse Rate 117 H 115 H 114 H Respiratory 17 22 30 H Rate Blood Pressure 127/69 137/71 135/62 O2 Sat by Pulse 100 100 100 Oximetry 10/04/18 10/04/18 10/04/18 06:51 06:55 07:00 Pulse Rate 114 H 113 H 112 H Respiratory 26 H 33 H Rate Blood Pressure 140/68 141/61 140/65 O2 Sat by Pulse 98 100 100 Oximetry 10/04/18 10/04/18 10/04/18 07:05 07:38 07:40 Pulse Rate 111 H 112 H 111 H Respiratory 17 15 11 L Rate Blood Pressure 139/59 120/73 128/62 O2 Sat by Pulse 100 99 Oximetry 10/04/18 10/04/18 10/04/18 07:45 07:47 07:50 Pulse Rate 110 H 110 H 109 H Respiratory 12 13 Rate Blood Pressure 131/51 128/62 127/75 O2 Sat by Pulse 100 99 97 Oximetry 10/04/18 10/04/18 10/04/18 07:51 07:55 08:00 Pulse Rate 110 H 108 H 108 H Respiratory 30 H 13 12 Rate Blood Pressure 142/60 135/66 O2 Sat by Pulse 98 98 Oximetry 10/04/18 10/04/18 10/04/18 08:05 08:10 08:15 Pulse Rate 107 H 106 H 106 H Respiratory 12 14 13 Rate Blood Pressure 131/80 136/80 145/56 O2 Sat by Pulse 100 98 96 Oximetry 10/04/18 10/04/18 10/04/18 08:20 08:25 08:30 Pulse Rate 104 H 103 H 102 H Respiratory 23 20 18 Rate Blood Pressure 133/67 142/71 147/79 O2 Sat by Pulse 96 96 98 Oximetry 10/04/18 10/04/18 10/04/18 08:35 08:40 08:42 Pulse Rate 100 H 100 H 100 H Respiratory 17 24 Rate Blood Pressure 136/66 141/67 146/74 O2 Sat by Pulse 94 88 97 Oximetry 10/04/18 10/04/18 10/04/18 08:45 08:50 08:55 Pulse Rate 101 H 100 H 101 H Respiratory 22 26 H 19 Rate Blood Pressure 144/78 147/78 157/77 O2 Sat by Pulse 93 94 96 Oximetry 10/04/18 10/04/18 10/04/18 09:00 09:05 09:10 Pulse Rate 101 H 102 H 103 H Respiratory 22 25 H 21 Rate Blood Pressure 151/95 146/89 160/74 O2 Sat by Pulse 94 99 67 L Oximetry 10/04/18 10/04/18 10/04/18 09:15 09:20 09:25 Pulse Rate 102 H 101 H 104 H Respiratory 22 23 19 Rate Blood Pressure 152/67 162/71 156/68 O2 Sat by Pulse 96 98 Oximetry 10/04/18 10/04/18 09:30 09:45 Pulse Rate 101 H 103 H Respiratory 24 21 Rate Blood Pressure 150/68 164/86 O2 Sat by Pulse 98 Oximetry - Reevaluation(s) Reevaluation #1: 10/04/18 06:06 Upon arrival patient with cough and now complex tachycardia with a rate in the 180s, patient was synchronized cardioverted into a sinus rhythm using 50 J with a rate in the 130s. Reevaluation #2: 10/04/18 06:52 Spoke w/ pt's daughter. Present during arrest. States pt was complaining of SOB prior to collapse. States pt was told that he needed to have a defi brillator placed, however, daughter states it still has not been scheduled. - Consultations Consultation #1: 10/04/18 06:35 Spoke w/ Dr Benavides, [facility]. Aware of pt. States would start heparin drip due to diffuse depressions if no signs of bleeding. - Central Line Placement Right Femoral Consent Obtained: emergent situation Time Out Performed: Yes Patient Placed on Monitor/Pulse Ox: Yes MD Prep: mask, gown, gloves Central Line Prep: Chlorhexidine scrub Ultrasound Used for Placement: No Central Line Lumen Inserted: triple Bloods Obtained for Lab: No Central Line Position: good blood return, all ports aspirated, flus, sutured in place with nyl Dressing Applied: Tegaderm Patient Tolerated Procedure: well Complications: none ED Medical Decision Making - Lab Data Result diagrams: 10/04/18 23:55 10/04/18 06:06 - EKG Data -: EKG Interpreted by Nm EKG shows normal: sinus rhythm, axis, intervals, QRS complexes Rate: tachycardia (rate 125) - EKG Data When compared to previous EKG there are: changes noted Interpretation: other (ST depressions present in inferolateral leads) - Radiology Data Radiology results: image reviewed - Medical Decision Making 68-year-old male presents to ED in post arrest. The patient was intubated in the field by EMS. Patient currently on 2 pressors, dopamine and epinephrine. EKG shows diffuse ST depressions in the inferior lateral leads, and troponin is elevated at 0.2. Dr. Benavides with [facility] is already aware of the patient and will see him this morning. Suggests heparin drip if there are no signs of bleeding. Chest x-ray has been done, however not yet read by radiologist. The tube appears to be an acceptable position, and patient appears to have fluffy infiltrates on x-ray, possibly pulmonary edema given the patient's history. ABG was which shows a pH of 6.9, so sodium bicarbonate drip has been ordered. Lactic acid resulted at 13.7. this is likely due to patient's cardiac arrest, however blood cultures and urine cultures collected and empiric antibiotics have been ordered, vancomycin and Zosyn. Patient is currently getting CT head and CTA chest. I spoke with Dr. Munson, hospitalist, who will admit the patient. Requests that bridge orders placed to the ICU, patient will be assigned to Dr. Reeves. I have asked Dr Mnuson to follow up on pt's CT Head, and if it is negative for a bleed, she agrees to order the heparin drip. - Differential Diagnosis respiratory arrest, arrythmia, PE, CVA, NC Critical Care Time: Yes Critical care time in (mins) excluding proc time.: 60 Critical care attestation.: If time is entered above; I have spent that time in minutes in the direct care of this critically ill patient, excluding procedure time. Critical Care Time: 60 minutes ED Disposition Clinical Impression: Cardiac arrest, Metabolic acidosis, Respiratory failure, NSTEMI (non-ST elevat ed myocardial infarction), Lactic acidosis Disposition: 09 OP ADMIT IP TO THIS HOSP Is pt being admited?: Yes Condition: Undetermined Time of Disposition: 07:14
[2018-10-04 06:24] LABS: Hematocrit 34.6 % (35.5-45.6); Hemoglobin 10.9 gm/dl (11.8-15.2); Mean Corpuscular HGB Conc 32 % (32-34); Mean Corpuscular Volume 104 fl (84-94); Platelet Count 127 K/mm3 (140-440); Red Blood Count 3.34 M/mm3 (3.65-5.03)
[2018-10-04] MEDS ORDERED: ZOSYN/NS 4.5GM/100ML 4.5 GM/100 ML VIAL IV ONE (06:32)
[2018-10-04] MEDS ORDERED: VANCOMYCIN/NS 1 GM/250 ML 1 GM/250 ML BAG IV ONE (06:32)
[2018-10-04 06:34] LABS: INR 1.36 (0.87-1.13)
[2018-10-04 06:35] LABS: Partial Thromboplastin Time 44.3 Sec. (24.2-36.6)
[2018-10-04] MEDS ORDERED: SODIUM BICARBONATE 50 MEQ in NACL 0.9% 1000 ML 1,000 ML IV ONE (06:39)
[2018-10-04 06:40] LABS: BUN/Creatinine Ratio 9; Blood Urea Nitrogen 12 mg/dL (9-20); Calcium 8.6 mg/dL (8.4-10.2); Hemolysis Index 20
[2018-10-04] MEDS ORDERED: NACL 0.9% 1000 ML 1,000 ML ONE (06:44)
[2018-10-04] MEDS ORDERED: VANCOMYCIN 2,000 MG in NACL 0.9% 500 ML 500 ML IV ONE (07:00)
[2018-10-04] MEDS ORDERED: NACL 0.9% 1000 ML 1,000 ML IV ONE (07:00)
[2018-10-04 07:17] LABS: Chol/HDL Ratio 2.76 %; HDL Cholesterol 50 mg/dL (40-59); LDL Cholesterol,Direct 90 mg/dL (50-130)
--- NOTE | 2018-10-04 07:26 | XRay Report ---
FINAL REPORT EXAM: XR CHEST 1V AP HISTORY: ETT placement TECHNIQUE: AP portable view(s) of the chest obtained. PRIORS: None. FINDINGS: Endotracheal tube terminates approximately 3 cm from the erik. Mild patient rotation. No mediastina l shift. Cardiac silhouette is mildly enlarged. No pneumothorax, definite effusion, or focal pulmonar y opacity identified. Diffuse interstitial prominence. No acute skeletal findings. IMPRESSION: Satisfactory appearance of patient's endotracheal tube without pneumothorax. Diffuse mild pulmonary interstitial edema is suggested.
[2018-10-04] MEDS ORDERED: HEPARIN 10,000 UNITS/10 ML IV ONE (07:33)
[2018-10-04 07:39] LABS: Total Cells Counted 100
[2018-10-04 07:40] LABS: Band Neutrophils # (Manual) 0.2 K/mm3; Basophils % (Manual) 0 % (0.0-1.8); Myelocytes # (Manual) 0.1 K/mm3
--- NOTE | 2018-10-04 07:41 | History and Physical Report ---
History of Present Illness Date of examination: 10/04/18 Chief complaint: Status post cardiac arrest History of present illness: 68-year-old male with past medical history significant for hypertension, cardiomyopathy, diabetes was presented via EMS after the patient was found in cardiac arrest at home. CPR was done and took a total of 25 minutes. Patient is intubated and on mechanical ventilation. History obtained per records and his daughter. Patient was found not breathing at around 5 AM this morning. Paramedics was called and arrived in 2 minutes and did chest compressions. Milli ent was in PEA. Patient is not moving, not on any sedation. REVIEW OF SYSTEMS: Couldn't be obtained because of patient's comatose. Past History Past Medical History: diabetes, heart failure, hypertension Past Surgical History: Other (couldn't be obtained because of patient's comatose) Social history: other (couldn't be obtained because of patient's comatose) Family history: other (couldn't be obtained because of patient's comatose) Medications and Allergies Allergies Allergy/AdvReac Type Severity Reaction Status Date / Time No Known Allergies Allergy Unverified 12/04/13 14:21 Home Medications Medication Instructions Recorded Confirmed Last Taken Type Carvedilol [Coreg] 3.125 mg PO BID #60 tablet 10/05/14 10/04/18 Unknown Rx Folic Acid [Folvite] 1 mg PO QDAY #30 tablet 10/05/14 10/04/18 Unknown Rx Potassium Chloride 10 meq PO QDAY #30 capsule.er 10/05/14 10/04/18 Unknown Rx Simvastatin 20 mg PO QHS #30 tablet 10/05/14 10/04/18 Unknown Rx Digoxin [Lanoxin] 0.125 mg PO DAILY 12/16/17 10/04/18 Unknown History Lisinopril [Zestril TAB] 2.5 mg PO BID 12/16/17 10/04/18 Unknown History Pentoxifylline 400 mg PO QDAY 12/16/17 10/04/18 Unknown History Furosemide [Lasix TAB] 20 mg PO QDAY 10/04/18 10/04/18 Unknown History Metformin HCl [Glucophage] 500 mg PO QDAY 10/04/18 10/04/18 Unknown History Active Meds: Active Medications Hydrophilic Ointment (Vaseline Lip Therapy) 1 applic TP Q2HR PRN PRN Reason: Dry Lips Dopamine HCl/Dextrose (Intropin Drip 800 Mg/D5w 250 Ml) 800 mg in 250 mls @ 4.423 mls/hr IV TITR ONE; Protocol Stop: 10/06/18 14:33 Vancomycin HCl 2,000 mg/ (Sodium Chloride) 540 mls @ 250 mls/hr IV ONCE ONE Stop: 10/04/18 09:09 Epinephrine 8 mg/ Sodium (Chloride) 250 mls @ 3.75 mls/hr IV TITR ONE; Protocol Stop: 10/07/18 01:12 Sodium Bicarbonate 50 meq/ (Sodium Chloride) 1,050 mls @ 100 mls/hr IV DIRECT ONE Stop: 10/04/18 17:08 Sodium Chloride (Nacl 0.9% 1000 Ml) 1,000 mls @ 999 mls/hr IV BOLUS ONE Stop: 10/04/18 08:00 Heparin Sodium/Sodium Chloride (Heparin/ 0.45% Nacl-25,000 Unit/500 Ml) 25,000 unit in 500 mls @ 35.38 mls/hr IV TITRATE HAM; Protocol Multi-Ingred Cream/Lotion/Oil/Oint (Artificial Tears Ophth Oint) 1 applic OU Q4HR PRN PRN Reason: Dry Eye(s) Exam - Physical Exam Narrative exam: Patient is intubated and on mechanical ventilation The patient appeared well nourished and normally developed. Vital signs as documented. Head exam is unremarkable. No scleral icterus . Neck is without jugular venous distension, thyromegaly, or carotid bruits. Lungs are clear to auscultation. Cardiac exam reveals regular rate and Rhythm. Abdominal exam reveals normal bowel sounds. Extremities are nonedematous and both femoral and pedal pulses are normal. 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 Pupils are fixed and dilated. - Constitutional Vitals: Temp Pulse Resp BP Pulse Ox 114 H 26 H 140/68 98 10/04/18 06:51 10/04/18 06:30 10/04/18 06:51 10/04/18 06:51 Results - Labs CBC & Chem 7: 10/04/18 07:52 10/04/18 06:06 Labs: Laboratory Last Values WBC 11.6 K/mm3 (4.5-11.0) H 10/04/18 06:06 RBC 3.34 M/mm3 (3.65-5.03) L 10/04/18 06:06 Hgb 10.9 gm/dl (11.8-15.2) L 10/04/18 06:06 Hct 34.6 % (35.5-45.6) L 10/04/18 06:06 MCV 104 fl (84-94) H 10/04/18 06:06 MCH 33 pg (28-32) H 10/04/18 06:06 MCHC 32 % (32-34) 10/04/18 06:06 RDW 16.0 % (13.2-15.2) H 10/04/18 06:06 Plt Count 127 K/mm3 (140-440) L 10/04/18 06:06 PT 17.2 Sec. (12.2-14.9) H 10/04/18 06:14 INR 1.36 (0.87-1.13) H 10/04/18 06:14 APTT 44.3 Sec. (24.2-36.6) H 10/04/18 06:14 POC ABG pH 6.942 (7.35-7.45) L 10/04/18 06:39 POC ABG pCO2 57.4 (35-45) H 10/04/18 06:39 POC ABG pO2 156 (80-105) H 10/04/18 06:39 POC ABG HCO3 12.4 10/04/18 06:39 POC ABG Total CO2 14 10/04/18 06:39 POC ABG O2 Sat 98 10/04/18 06:39 POC ABG Base Excess -20 10/04/18 06:39 FiO2 100 % 10/04/18 06:39 Sodium 148 mmol/L (137-145) H 10/04/18 06:06 Potassium 4.2 mmol/L (3.6-5.0) 10/04/18 06:06 Chloride 103.8 mmol/L (98-107) 10/04/18 06:06 Carbon Dioxide 16 mmol/L (22-30) L 10/04/18 06:06 Anion Gap 32 mmol/L 10/04/18 06:06 BUN 12 mg/dL (9-20) 10/04/18 06:06 Creatinine 1.3 mg/dL (0.8-1.5) 10/04/18 06:06 Estimated GFR > 60 ml/min 10/04/18 06:06 BUN/Creatinine Ratio 9 % 10/04/18 06:06 Glucose 287 mg/dL (75-100) H 10/04/18 06:06 Lactic Acid 13.70 mmol/L (0.7-2.0) H* 10/04/18 06:06 Calcium 8.6 mg/dL (8.4-10.2) 10/04/18 06:06 Troponin T 0.209 ng/mL (0.00-0.029) H* 10/04/18 06:06 NT-Pro-B Natriuret Pep 1474 pg/mL (0-900) H 10/04/18 06:06 Triglycerides 116 mg/dL (2-149) 10/04/18 06:06 Cholesterol 138 mg/dL (50-199) 10/04/18 06:06 LDL Cholesterol Direct 90 mg/dL (50-130) 10/04/18 06:06 HDL Cholesterol 50 mg/dL (40-59) 10/04/18 06:06 Cholesterol/HDL Ratio 2.76 % 10/04/18 06:06 Assessment and Plan Assessment and plan: Status post cardiac arrest Respiratory failure Lactic acidosis Sepsis ? Pneumonia Congestive heart failure Anoxic brain injury Diabetes mellitus with hyperglycemia - Patient CPR for 25 minutes - Intubated in the mechanical ventilation - CT head is normal, patient may have brain , pupils are fixed and dilated, consulted neurology, recommended EEG - Cardiology consulted, and patient is on heparin drip - Sliding scale insulin Disposition - Admit to CCU The high probability of a clinically significant, sudden or life threatening d eterioration of the [CV, neurology] system(s) required my full and direct attention, intervention and personal management. The aggregate critical care time was [35] minutes. This time is in addition to time spent performing reported procedures but includes the following: [x] Data Review and interpretation [x] Patient assessment and monitoring of vital signs [x] Documentation [x] Medication orders and management Advance Directives: Yes VTE prophylaxis?: Chemical Plan of care discussed with patient/family: Yes
[2018-10-04 07:44] LABS: Macrocytosis 2+
[2018-10-04 07:45] LABS: Anisocytosis 1+; Large Platelets Few; Platelet Estimate Consistent w Auto
[2018-10-04] MEDS ORDERED: HEPARIN/ 0.45% NACL-25,000 UNIT/500 ML 25,000 UNIT/500 ML BAG IV SCH (08:00)
--- NOTE | 2018-10-04 08:00 | Cat Scan Report ---
FINAL REPORT EXAM: CT HEAD/BRAIN WO CON HISTORY: post cardiac arrest TECHNIQUE: CT imaging acquired through the head without intravenous contrast. Transaxial reformatio ns are provided. PRIORS: None. FINDINGS: The ventricles, cisterns and sulci are within normal limits. No intraparenchymal or extra-axial mass, hemorrhage, or mass effect. Gomez and white-matter differentiation is within normal limits for patie nt age. Normal spherical shape of the globes. No significant abnormality involving the imaged portions of the paranasal sinuses and mastoid air cells. No skull or facial fracture visualized. Posterior oral pharyngeal fluid likely related to intubation. IMPRESSION: No acute intracranial abnormality.
[2018-10-04 08:01] LABS: Hematocrit 37.6 % (35.5-45.6); Hemoglobin 12.5 gm/dl (11.8-15.2)
[2018-10-04 08:11] LABS: INR 1.27 (0.87-1.13)
[2018-10-04 08:12] LABS: Partial Thromboplastin Time 36.6 Sec. (24.2-36.6)
--- NOTE | 2018-10-04 08:12 | Cat Scan Report ---
FINAL REPORT EXAM: CT ANGIO CHEST HISTORY: post cardiac arrest TECHNIQUE: CT imaging obtained through the chest in pulmonary angiographic phase following intraveno us administration of contrast. Transaxial, Coronal and sagittal reformats with maximal intensity proj ections are provided. PRIORS: Chest radiograph of the same date FINDINGS: The patient's endotracheal tube terminates within 1 cm of the erik. Normal caliber main pulmonary artery. Well opacified pulmonary arterial tree. No pulmonary embolism. No pericardial effusion. Cardiomegaly. Coronary artery disease. Enlarged mediastinal lymph nodes carmen ure up to 10 x 18 millimeters on axial series 2, image 29. Thoracic aorta is normal in course and caliber. No periaortic fluid or stranding. No pneumothorax. Trace bilateral effusions with compressive atelectasis. Diffuse interlobular septal thickening. Upper lung predominant ground-glass attenuating nodularity. Biapical bronchiectasis and p ossible subpleural cyst formation seen on axial series 2, image 29. Imaged portion of the upper abdomen is remarkable for a 5 millimeter gallstone near the neck of the g allbladder. The superficial soft tissues are unremarkable. No acute bony abnormality or worrisome osseous lesions identified. IMPRESSION: The patient's endotracheal tube terminates within 1 cm of the erik. Retraction of 3-4 cm is suggest ed for more optimal positioning. No pulmonary embolism . Trace bilateral effusions and dependent atelectasis. Airspace disease can go undetected in this setti ng. Ground-glass attenuating nodularity in the upper lungs may be infectious or related to edema or aspir ation. Upper lung bronchiectasis and possible honeycombing may also be related to prior infection or develop ing fibrosis. Future evaluation with high-resolution CT chest is recommended when patient is not intu bated and can follow breath hold instructions. Notification initiated via Markus lan support specialist immediately following this dictation on 10/04/2018.
[2018-10-04] MEDS ORDERED: ZOSYN/NS 3.375GM/50ML 3.375 GM/50 ML BAG IV SCH (10:00)
--- NOTE | 2018-10-04 11:44 | Consultation ---
Addendum entered and electronically signed by SLY OSHEA MD 10/04/18 12:33: Patient has a history of dilated nonischemic cardiomyopathy, declined the recomm endation for primary ICD implant, presents with an out of hospital cardiopulmonary arrest. We will continue medical therapy and supportive measures as indicated. Original Note: History of Present Illness Consult date: 10/04/18 Consult reason: cardiac arrest History of present illness: This is a 68 year old male with a history of a dilated nonischemic cardiomyopathy by a cardiac cath in 2013 and again January 2018 that showed small vessel disease but an ejection fraction of 20%. Medical therapy was recommended. Follow up echocardiograms revealed a continued decreased left ventricular systolic function. As an outpatient, patient was referred for an AICD but declined and wised to think about it further. Patient who was brought to the emergency department with an out of the hospital cardiopulmonary arrest. On presentation, he is found with acute pulmonary edema. He is currently intubated, on mechanical ventilation. His ECG shows sinus tachycardia with diffuse ST depressions. Medications and Allergies Allergies Allergy/AdvReac Type Severity Reaction Status Date / Time No Known Allergies Allergy Unverified 12/04/13 14:21 Home Medications Medication Instructions Recorded Confirmed Last Taken Type Carvedilol [Coreg] 3.125 mg PO BID #60 tablet 10/05/14 10/04/18 Unknown Rx Folic Acid [Folvite] 1 mg PO QDAY #30 tablet 10/05/14 10/04/18 Unknown Rx Potassium Chloride 10 meq PO QDAY #30 capsule.er 10/05/14 10/04/18 Unknown Rx Simvastatin 20 mg PO QHS #30 tablet 10/05/14 10/04/18 Unknown Rx Digoxin [Lanoxin] 0.125 mg PO DAILY 12/16/17 10/04/18 Unknown History Lisinopril [Zestril TAB] 2.5 mg PO BID 12/16/17 10/04/18 Unknown History Pentoxifylline 400 mg PO QDAY 12/16/17 10/04/18 Unknown History Furosemide [Lasix TAB] 20 mg PO QDAY 10/04/18 10/04/18 Unknown History Metformin HCl [Glucophage] 500 mg PO QDAY 10/04/18 10/04/18 Unknown History Active Meds: Active Medications Hydrophilic Ointment (Vaseline Lip Therapy) 1 applic TP Q2HR PRN PRN Reason: Dry Lips Dopamine HCl/Dextrose (Intropin Drip 800 Mg/D5w 250 Ml) 800 mg in 250 mls @ 4.423 mls/hr IV TITR ONE; Protocol Stop: 10/06/18 14:33 Last Admin: 10/04/18 07:00 Dose: 20 mcg/kg/min, 44.225 mls/hr Documented by: Epinephrine 8 mg/ Sodium (Chloride) 250 mls @ 3.75 mls/hr IV TITR ONE; Protocol Stop: 10/07/18 01:12 Last Admin: 10/04/18 07:00 Dose: 2 mcg/min, 3.75 mls/hr Documented by: Sodium Bicarbonate 50 meq/ (Sodium Chloride) 1,050 mls @ 100 mls/hr IV DIRECT ONE Stop: 10/04/18 17:08 Last Admin: 10/04/18 08:23 Dose: 100 mls/hr Documented by: Heparin Sodium/Sodium Chloride (Heparin/ 0.45% Nacl-25,000 Unit/500 Ml) 25,000 unit in 500 mls @ 20 mls/hr IV TITRATE HAM; Protocol Last Admin: 10/04/18 09:26 Dose: 1,000 units/hr, 20 mls/hr Documented by: Piperacillin Sod/Tazobactam Sod (Zosyn/Ns 3.375gm/50ml) 3.375 gm in 50 mls @ 100 mls/hr IV Q8HR HAM; Protocol Multi-Ingred Cream/Lotion/Oil/Oint (Artificial Tears Ophth Oint) 1 applic OU Q4HR PRN PRN Reason: Dry Eye(s) Physical Examination Vital Signs Pulse Resp 174 H 19 10/04/18 05:32 10/04/18 05:32 General appearance: other (intubated on the vent) Cardiac: Positive: Tachycardia Results 10/04/18 07:52 10/04/18 06:06 Coagulation 10/04/18 10/04/18 Range/Units 06:14 07:52 PT 17.2 H 16.3 H (12.2-14.9) Sec. INR 1.36 H 1.27 H (0.87-1.13) APTT 44.3 H 36.6 (24.2-36.6) Sec. Lipids 10/04/18 Range/Units 06:06 Triglycerides 116 (2-149) mg/dL Cholesterol 138 (50-199) mg/dL HDL Cholesterol 50 (40-59) mg/dL Cholesterol/HDL Ratio 2.76 % CBC 10/04/18 10/04/18 Range/Units 06:06 07:52 WBC 11.3 H (4.5-11.0) K/mm3 RBC 3.34 L (3.65-5.03) M/mm3 Hgb 10.9 L 12.5 (11.8-15.2) gm/dl Hct 34.6 L 37.6 (35.5-45.6) % Plt Count 127 L 161 (140-440) K/mm3 Comprehensive Metabolic Panel 10/04/18 Range/Units 06:06 Sodium 148 H (137-145) mmol/L Potassium 4.2 (3.6-5.0) mmol/L Chloride 103.8 (98-107) mmol/L Carbon Dioxide 16 L (22-30) mmol/L BUN 12 (9-20) mg/dL Creatinine 1.3 (0.8-1.5) mg/dL Glucose 287 H (75-100) mg/dL Calcium 8.6 (8.4-10.2) mg/dL Assessment and Plan Out of the hospital cardiopulmonary arrest no evidence of PE by chest CT scan intubated on the vent Pulmonary edema Dilated Nonischemic cardiomyopathy, EF 15-20% [facility] 01/2018: small vessel disease, EF 15-20% recommended for medical therapy Hypertension Lactic acidosis
--- NOTE | 2018-10-04 12:52 | Consultation ---
History of Present Illness Consult date: 10/04/18 Requesting physician: MARLENY BRITT Reason for Consult: S/P caerdiac arrest. suspect anoxic brain injury. History of present illness: This is a 68 yr old male with history of smoking, COPD, and congestive heart failure (nonischemic dilated cardiomyopathy) with EF of 15 to 20%, presented with out of hospital arrest. The pt. was having respiratory issues and EMS was called. Before they arrived he collapsed and was found by EMS to be in PEA. He was intubated, ACLS was initiated and he was transported to ED. The pt. has not awakened since the arrest. He remains on the ventilator, without sedation, on pressor agents and hepatin. We are asked to see the pt. for anoxic brain injury. A CT scan of brain on admission was unremarkable. Past History Past Medical History: COPD, diabetes, heart failure, hypertension, stroke Past Surgical History: Other (ankle surgery) Social history: , lives with family, smoking Medications and Allergies Allergies Allergy/AdvReac Type Severity Reaction Status Date / Time No Known Allergies Allergy Unverified 12/04/13 14:21 Home Medications Medication Instructions Recorded Confirmed Last Taken Type Carvedilol [Coreg] 3.125 mg PO BID #60 tablet 10/05/14 10/04/18 Unknown Rx Folic Acid [Folvite] 1 mg PO QDAY #30 tablet 10/05/14 10/04/18 Unknown Rx Potassium Chloride 10 meq PO QDAY #30 capsule.er 10/05/14 10/04/18 Unknown Rx Simvastatin 20 mg PO QHS #30 tablet 10/05/14 10/04/18 Unknown Rx Digoxin [Lanoxin] 0.125 mg PO DAILY 12/16/17 10/04/18 Unknown History Lisinopril [Zestril TAB] 2.5 mg PO BID 12/16/17 10/04/18 Unknown History Pentoxifylline 400 mg PO QDAY 12/16/17 10/04/18 Unknown History Furosemide [Lasix TAB] 20 mg PO QDAY 10/04/18 10/04/18 Unknown History Metformin HCl [Glucophage] 500 mg PO QDAY 10/04/18 10/04/18 Unknown History Active Meds: Active Medications Hydrophilic Ointment (Vaseline Lip Therapy) 1 applic TP Q2HR PRN PRN Reason: Dry Lips Dopamine HCl/Dextrose (Intropin Drip 800 Mg/D5w 250 Ml) 800 mg in 250 mls @ 4 .423 mls/hr IV TITR ONE; Protocol Stop: 10/06/18 14:33 Last Titration: 10/04/18 12:04 Dose: 5 mcg/kg/min, 11.056 mls/hr Documented by: Epinephrine 8 mg/ Sodium (Chloride) 250 mls @ 3.75 mls/hr IV TITR ONE; Protocol Stop: 10/07/18 01:12 Last Admin: 10/04/18 07:00 Dose: 2 mcg/min, 3.75 mls/hr Documented by: Sodium Bicarbonate 50 meq/ (Sodium Chloride) 1,050 mls @ 100 mls/hr IV DIRECT ONE Stop: 10/04/18 17:08 Last Admin: 10/04/18 08:23 Dose: 100 mls/hr Documented by: Heparin Sodium/Sodium Chloride (Heparin/ 0.45% Nacl-25,000 Unit/500 Ml) 25,000 unit in 500 mls @ 20 mls/hr IV TITRATE HAM; Protocol Last Admin: 10/04/18 09:26 Dose: 1,000 units/hr, 20 mls/hr Documented by: Piperacillin Sod/Tazobactam Sod (Zosyn/Ns 4.5gm/100ml) 4.5 gm in 100 mls @ 200 mls/hr IV Q8HR HAM Multi-Ingred Cream/Lotion/Oil/Oint (Artificial Tears Ophth Oint) 1 applic OU Q4HR PRN PRN Reason: Dry Eye(s) Review of Systems ROS unobtainable: due to endotracheal tube Physical Examination - Vital Signs Vital Signs: Vital Signs Pulse Resp 174 H 19 10/04/18 05:32 10/04/18 05:32 - Physical Exam Narrative exam: Neurological exam - unresponsive on ventilator. no spontaneous movement. 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 pupils - 3 mm bilaterally, unresponsive to light. no corneal response. face is symmetric. Motor - no movement to painful stimulation. Reflexes - absent Sensory - no withdrawal or grimace to painful stimulation. Results - Laboratory Findings CBC and BMP: 10/04/18 07:52 10/04/18 06:06 Abnormal Lab Findings: Abnormal Labs 01/04/19 01/04/19 01/04/19 06:06 06:06 06:06 WBC 11.3 H RBC 3.34 L Hgb 10.9 L Hct 34.6 L MCV 104 H MCH 33 H RDW 16.0 H Plt Count 127 L Seg Neuts % (Manual) 28.0 L Lymphocytes % (Manual) 58.0 H Nucleated RBC % 2.0 H Lymphocytes # (Manual) 6.6 H Eosinophils # (Manual) 0.5 H PT INR APTT POC ABG pH POC ABG pCO2 POC ABG pO2 Sodium 148 H Carbon Dioxide 16 L Glucose 287 H POC Glucose Lactic Acid 13.70 H* Troponin T 0.209 H* NT-Pro-B Natriuret Pep 10/04/18 10/04/18 10/04/18 06:06 06:14 06:39 WBC RBC Hgb Hct MCV MCH RDW Plt Count Seg Neuts % (Manual) Lymphocytes % (Manual) Nucleated RBC % Lymphocytes # (Manual) Eosinophils # (Manual) PT 17.2 H INR 1.36 H APTT 44.3 H POC ABG pH 6.942 L POC ABG pCO2 57.4 H POC ABG pO2 156 H Sodium Carbon Dioxide Glucose POC Glucose Lactic Acid Troponin T NT-Pro-B Natriuret Pep 1474 H 10/04/18 10/04/18 10/04/18 07:52 09:14 09:14 WBC RBC Hgb Hct MCV MCH RDW Plt Count Seg Neuts % (Manual) Lymphocytes % (Manual) Nucleated RBC % Lymphocytes # (Manual) Eosinophils # (Manual) PT 16.3 H INR 1.27 H APTT POC ABG pH POC ABG pCO2 POC ABG pO2 Sodium Carbon Dioxide Glucose POC Glucose Lactic Acid 5.70 H* Troponin T 0.690 H* D NT-Pro-B Natriuret Pep 10/04/18 10:28 WBC RBC Hgb Hct MCV MCH RDW Plt Count Seg Neuts % (Manual) Lymphocytes % (Manual) Nucleated RBC % Lymphocytes # (Manual) Eosinophils # (Manual) PT INR APTT POC ABG pH POC ABG pCO2 POC ABG pO2 Sodium Carbon Dioxide Glucose POC Glucose 230 H Lactic Acid Troponin T NT-Pro-B Natriuret Pep Assessment and Plan 68 yr old male who was awaiting EMS for a call for respiratory distress, then had a cardiac arrest while they were enroute. CPR was performed, he was intubated in the field and resuscitated. He has not awakened since the event. CT brain on admission was unremarkable. Neurological exam reveals min. function Suspect anoxic brain damage. Plan - Will order an EEG Maintain support as is.
[2018-10-04] MEDS ORDERED: D50W (25GM) Syringe IV PRN (13:59)
[2018-10-04 15:00] LABS: Hematocrit 43.2 % (35.5-45.6); Hemoglobin 14.2 gm/dl (11.8-15.2)
[2018-10-04] MEDS: ZOSYN/NS 4.5GM/100ML 4.5 GM/100 ML VIAL IV SCH ×2 (15:43→22:04)
[2018-10-04] MEDS ORDERED: HumaLOG SUB-Q SCH ×2 (16:30→18:00)
[2018-10-04] MEDS ORDERED: LEVOPHED 8 MG in NACL 0.9% 250ML 242 ML IV SCH (17:00)
[2018-10-04] MEDS ORDERED: Vasostrict 20 UNIT in NACL 0.9% 100 ML IV SCH (17:00)
[2018-10-04] MEDS ORDERED: ATIVAN IV ONE (17:37)
--- NOTE | 2018-10-04 17:37 | XRay Report ---
FINAL REPORT EXAM: XR ABDOMEN 1V AP HISTORY: Confirm OGT TECHNIQUE: Supine limited views of the abdomen PRIORS: None. FINDINGS: Nasogastric tube terminates below the left diaphragm in the distal stomach in satisfactory position. The actual tip is off the edge of the film near the pyloric region. IMPRESSION: Satisfactory NG tube placement
[2018-10-04] MEDS ORDERED: ATIVAN IV PRN (18:31)
--- NOTE | 2018-10-04 18:32 | Consultation ---
History of Present Illness Consult date: 10/04/18 Requesting physician: MARLENY BRITT Reason for consult: other (Post Arrest, Intubated not on sedation) Past History Past Medical History: diabetes, heart failure, hypertension Past Surgical History: Other (couldn't be obtained because of patient's comatose) Social history: other (couldn't be obtained because of patient's comatose) Family history: other (couldn't be obtained because of patient's comatose) Medications and Allergies Allergies Allergy/AdvReac Type Severity Reaction Status Date / Time No Known Allergies Allergy Unverified 12/04/13 14:21 Home Medications Medication Instructions Recorded Confirmed Last Taken Type Carvedilol [Coreg] 3.125 mg PO BID #60 tablet 10/05/14 10/04/18 Unknown Rx Folic Acid [Folvite] 1 mg PO QDAY #30 tablet 10/05/14 10/04/18 Unknown Rx Potassium Chloride 10 meq PO QDAY #30 capsule.er 10/05/14 10/04/18 Unknown Rx Simvastatin 20 mg PO QHS #30 tablet 10/05/14 10/04/18 Unknown Rx Digoxin [Lanoxin] 0.125 mg PO DAILY 12/16/17 10/04/18 Unknown History Lisinopril [Zestril TAB] 2.5 mg PO BID 12/16/17 10/04/18 Unknown History Pentoxifylline 400 mg PO QDAY 12/16/17 10/04/18 Unknown History Furosemide [Lasix TAB] 20 mg PO QDAY 10/04/18 10/04/18 Unknown History Metformin HCl [Glucophage] 500 mg PO QDAY 10/04/18 10/04/18 Unknown History Active Meds: Active Medications Dextrose (D50w (25gm) Syringe) 50 ml IV PRN PRN PRN Reason: Hypoglycemia Hydrophilic Ointment (Vaseline Lip Therapy) 1 applic TP Q2HR PRN PRN Reason: Dry Lips Epinephrine 8 mg/ Sodium (Chloride) 250 mls @ 3.75 mls/hr IV TITR ONE; Protocol Stop: 10/07/18 01:12 Last Titration: 10/04/18 17:46 Dose: 1 mcg/min, 1.88 mls/hr Documented by: Piperacillin Sod/Tazobactam Sod (Zosyn/Ns 4.5gm/100ml) 4.5 gm in 100 mls @ 200 mls/hr IV Q8HR HAM Last Admin: 10/04/18 15:43 Dose: 200 mls/hr Documented by: Norepinephrine 8 mg/ Sodium (Chloride) 250 mls @ 3.75 mls/hr IV TITR HAM; Mino col Vasopressin 20 unit/ Sodium (Chloride) 101 mls @ 9.09 mls/hr IV TITR HAM; Protocol Insulin Human Lispro (Humalog) 0 unit SUB-Q Q6HR HAM; Protocol Multi-Ingred Cream/Lotion/Oil/Oint (Artificial Tears Ophth Oint) 1 applic OU Q4HR PRN PRN Reason: Dry Eye(s) Physical Examination Vital signs: Vital Signs Pulse Resp 174 H 19 10/04/18 05:32 10/04/18 05:32 Results - Laboratory Findings CBC and BMP: 10/04/18 14:45 10/04/18 06:06 ABG POC ABG pH 7.342 (7.35-7.45) L 10/04/18 13:33 POC ABG pCO2 28.3 (35-45) L 10/04/18 13:33 POC ABG pO2 158 (80-105) H 10/04/18 13:33 POC ABG HCO3 15.4 10/04/18 13:33 POC ABG Total CO2 16 10/04/18 13:33 POC ABG O2 Sat 99 10/04/18 13:33 PT/INR, D-dimer PT 16.3 Sec. (12.2-14.9) H 10/04/18 07:52 INR 1.27 (0.87-1.13) H 10/04/18 07:52 Abnormal lab findings: Abnormal Labs 10/04/18 10/04/18 10/04/18 06:06 06:06 06:06 WBC 11.3 H RBC 3.34 L Hgb 10.9 L Hct 34.6 L MCV 104 H MCH 33 H RDW 16.0 H Plt Count 127 L Seg Neuts % (Manual) 28.0 L Lymphocytes % (Manual) 58.0 H Nucleated RBC % 2.0 H Lymphocytes # (Manual) 6.6 H Eosinophils # (Manual) 0.5 H PT INR APTT POC ABG pH POC ABG pCO2 POC ABG pO2 Sodium 148 H Carbon Dioxide 16 L Glucose 287 H POC Glucose Lactic Acid 13.70 H* Troponin T 0.209 H* NT-Pro-B Natriuret Pep 10/04/18 10/04/18 10/04/18 06:06 06:14 06:39 WBC RBC Hgb Hct MCV MCH RDW Plt Count Seg Neuts % (Manual) Lymphocytes % (Manual) Nucleated RBC % Lymphocytes # (Manual) Eosinophils # (Manual) PT 17.2 H INR 1.36 H APTT 44.3 H POC ABG pH 6.942 L POC ABG pCO2 57.4 H POC ABG pO2 156 H Sodium Carbon Dioxide Glucose POC Glucose Lactic Acid Troponin T NT-Pro-B Natriuret Pep 1474 H 10/04/18 10/04/18 10/04/18 07:52 09:14 09:14 WBC RBC Hgb Hct MCV MCH RDW Plt Count Seg Neuts % (Manual) Lymphocytes % (Manual) Nucleated RBC % Lymphocytes # (Manual) Eosinophils # (Manual) PT 16.3 H INR 1.27 H APTT POC ABG pH POC ABG pCO2 POC ABG pO2 Sodium Carbon Dioxide Glucose POC Glucose Lactic Acid 5.70 H* Troponin T 0.690 H* D NT-Pro-B Natriuret Pep 10/04/18 10/04/18 10/04/18 10:28 12:25 13:33 WBC RBC Hgb Hct MCV MCH RDW Plt Count Seg Neuts % (Manual) Lymphocytes % (Manual) Nucleated RBC % Lymphocytes # (Manual) Eosinophils # (Manual) PT INR APTT POC ABG pH 7.342 L POC ABG pCO2 28.3 L POC ABG pO2 158 H Sodium Carbon Dioxide Glucose POC Glucose 230 H Lactic Acid Troponin T 1.960 H* D NT-Pro-B Natriuret Pep 10/04/18 10/04/18 13:40 17:41 WBC RBC Hgb Hct MCV MCH RDW Plt Count Seg Neuts % (Manual) Lymphocytes % (Manual) Nucleated RBC % Lymphocytes # (Manual) Eosinophils # (Manual) PT INR APTT POC ABG pH POC ABG pCO2 POC ABG pO2 Sodium Carbon Dioxide Glucose POC Glucose 119 H Lactic Acid 3.90 H* Troponin T NT-Pro-B Natriuret Pep Assessment and Plan 68 y/o male with out of hospital arrest, approximately 20-25 minutes of coding time, admitted to ICU on vasopressor therapy, intubated not on sedation now with myclonic jerking. 1. Stop heparin given bright red blood coming from rectum 2. Continue supportive vent care, on minimal settings 3. Will add Levophed and vaso with attempts to wean off Epi 4. Stop dopamine 5. Follow up EEG results Overall prognosis is very poor. Long discussion with daughter outside of room. There are are a total of 6 children. Patient had known systolic heart failure and no ICD. Per daughter had a life vest at one point. Given prolonged downtime, neuro recovery is poor and now with myclonic jerking makes prognosis even worse. EEG pending. Explained to the daughter about heart failure and neurologic damage and explained the next 24 hours would be crucial. He is not currently on any sedation and is unresponsive. Family tearful at bedside but expressed understanding of the severity of the situation.
[2018-10-05 00:01] LABS: Hematocrit 42.3 % (35.5-45.6); Hemoglobin 14.5 gm/dl (11.8-15.2)
[2018-10-05] MEDS ORDERED: ADRENALIN ONE (00:25)
--- NOTE | 2018-10-05 00:45 | Event Note ---
Code blue initial rhythm PEA ACLS protocol initiated, patient is on the epinephrine drip, refer to sheet for details The patient shall twice 1 V. fib and V. tach there was no ROSC Time of 38
[2018-10-05 00:59] VITALS: BP 56/25
--- NOTE | 2018-10-05 07:42 | Death Summary ---
Summary - Providers Date of service: 10/05/18 Consults: 10/04/18 05:46 Consult to Dietitian/Nutrition [CONS] Routine Physician Instructions: Reason For Exam: Reason for Consult: Evaluate nutritional intake 10/04/18 06:36 Consult to Physician [CONS] Stat Comment: DR GONZALEZ NOTIFIED [id number] Consulting Provider: SUNDAR GONZALEZ Physician Instructions: Reason For Exam: post-arrest 10/04/18 07:31 Consult to Physician [CONS] Routine Comment: Consulting Provider: CUBA DELEON Physician Instructions: Reason For Exam: s/p cardiac arrest 10/04/18 07:32 Consult to Physician [CONS] Stat Comment: Consulting Provider: CUBA DELEON Physician Instructions: Reason For Exam: post-arrest 10/04/18 09:37 Consult to Physician [CONS] Routine Comment: Consulting Provider: DIVYA RUIZ Physician Instructions: Reason For Exam: s/p crdaic arrest, evaluate for brain Attending: MARLENY BRITT MD - summary Date of admission: 10/04/18 07:22 Date of : 10/05/18 Reason for admission: S/p cardiac arrest Significant findings: 68-year-old male with past medical history significant for hypertension, cardiomyopathy, diabetes was presented via EMS to ED after the patient was found in cardiac arrest at home it was unknown how long the patient was in that condition. CPR was done by EMS for 25 minutes and GAL[place]. Patient was intubated and on mechanical ventilation. History obtained per records and his daughter. Patient was found not breathing at around 5 AM this morning. Paramedics was called and arrived in 2 minutes and did chest compressions. Patient was in PEA. Patient didn't have any movement and not on any sedation. Pupils were fixed and dilated and I had a suspicion of brain and Neurology was consulted and ordered EEG but before that was done the patient was coded and . Pertinent studies: CT head ramiro - Final diagnosis (1) Ventricular fibrillation Note: Final diagnosis: (2) V tach Note: Final diagnosis: (3) Anoxic brain injury Note: Final diagnosis: (4) Cardiac arrest Note: Final diagnosis: (5) Hyperglycemia Note: Final diagnosis: (6) Hypertension Note: Final diagnosis: (7) Hypoxia Note: Final diagnosis: (8) Lactic acidosis Note: Final diagnosis: (9) Metabolic acidosis Note: Final diagnosis: (10) NSTEMI (non-ST elevated myocardial infarction) Note: Final diagnosis: (11) Pulmonary edema Note: Final diagnosis: (12) Respiratory failure Note: Final diagnosis: (13) Respiratory failure with hypoxia Note: Final diagnosis: (14) SOB (shortness of breath) Note: Final diagnosis: (15) COPD exacerbation Note: Final diagnosis:
== END 2018-10-05 05:20 | DRG 871 ==
LOC: ED 05:31 → CC1 07:22
PROVIDERS: ADMIT Internal Medicine; ATTEND Internal Medicine
PROC: 4A033R1 Measurement of Arterial Saturation, Peripheral, Percutaneous Approach (ICD-10-PCS; 2018-10-04)
PROC: 5A1935Z Respiratory Ventilation, Less than 24 Consecutive Hours (ICD-10-PCS; 2018-10-04)
PROC: 5A12012 Performance of Cardiac Output, Single, Manual (ICD-10-PCS; principal; 2018-10-05)
PROC: 06HM33Z Insertion of Infusion Device into Right Femoral Vein, Percutaneous Approach (ICD-10-PCS; 2018-10-05)
DX: A41.9 Sepsis, unspecified organism (principal); I21.4 Non-ST elevation (NSTEMI) myocardial infarction; J96.91 Respiratory failure, unspecified with hypoxia; I42.0 Dilated cardiomyopathy; I47.2 Ventricular tachycardia; G93.1 Anoxic brain damage, not elsewhere classified; J44.1 Chronic obstructive pulmonary disease with (acute) exacerbation; I46.9 Cardiac arrest, cause unspecified; I50.9 Heart failure, unspecified; I11.0 Hypertensive heart disease with heart failure; M10.9 Gout, unspecified; E11.65 Type 2 diabetes mellitus with hyperglycemia; I49.01 Ventricular fibrillation; Z79.84 Long term (current) use of oral hypoglycemic drugs; Z79.899 Other long term (current) drug therapy; Z86.73 Personal history of transient ischemic attack (TIA), and cerebral infarction without residual deficits; Z99.81 Dependence on supplemental oxygen
CPT/HCPCS: 36415; 36600; 70450; 71045; 71275; 74018; 80048; 80061; 82140; 82270; 82803; 82962; 83880; 84484; 85007; 85014; 85018; 85025; 85049; 85520; 85610; 85730; 87040; 87070; 87205; 92950; 93005; 93010; 94002; 95819; 96361; 96365; 96367; 96375; G0378; J0171; J0461; J1265; J1644; J2060; J2543; J3370; J7030; J7040; J7050; Q9967